=== PATIENT | female | born 1995 | race Caucasian/White ===

== ENCOUNTER 2017-02-24 07:11 | Emergency (ER) | payer BC, OTHER ==
--- NOTE | 2017-02-24 08:07 | EDM.PDOC ---
ED HPI GENERAL MEDICAL PROBLEM - General Chief Complaint: Cardiovascular Problem Stated Complaint: FAST HEART RATE Time Seen by Provider: 02/24/17 07:21 Source of Information: Reports: Patient History Limitations: Reports: No Limitations - History of Present Illness INITIAL COMMENTS - FREE TEXT/NARRATIVE: The patient is a 21-year-old female with multiple concerns. [place] She states that the main reason she came in this morning is because she was up all night last night unable to sleep. She says that she felt like her heart was racing and also says that every time she was about to drift off to sleep she felt like she couldn't catch her breath and then would wake up and feel anxious and the process would start over again. She doesn't currently feel short of breath. She doesn't have any chest pain. She hasn't been ill recently. She does intermittently feel like her heart is racing. She states that she's been very anxious about a "dent" on her head. It is located on top of her scalp. She just noticed it over the past few days. She is worried it could be sinus in thing dangerous. She has no headache. She has no recent trauma. She is not sure when the dent appeared. She hasn't seen a doctor for it previously. She is also concerned because she was told that she has an abnormal Pap and is positive for HPV. She hasn't followed up with gynecology yet but she does have plans to do so. She has not yet established care with a local primary care provider - Related Data Allergies Allergy/AdvReac Type Severity Reaction Status Date / Time Penicillins Allergy Hives Verified 02/24/17 07:25 Home Meds: Home Meds Cranberry Extract [Cranberry] 1,000 mg PO DAILY 02/24/17 [History] Cyanocobalamin (Vitamin B-12) [Vitamin B12] 2,500 mcg PO DAILY 02/24/17 [History ] Ethinyl Estradiol/Drospirenone [Drospirenone-Ee 3-0.03 mg Tab] 1 tab PO DAILY [History] Multivits,Ca,Minerals/Iron/FA [One-A-Day Women's] 1 tab PO DAILY 02/24/17 [ History] hydrOXYzine HCl [Atarax] 25 mg PO BEDTIME PRN #12 tablet 02/24/17 [Rx] Past Medical History HEENT History: Reports: Impaired Vision Other HEENT History: wears contacts/glasses. Gastrointestinal History: Reports: Other (See Below) Other Gastrointestinal History: states "I just get stomach aches." Genitourinary History: Reports: UTI, Recurrent CASING BLOWER History: Reports: Neurological History: Reports: Headaches, Chronic Psychiatric History: Reports: Anxiety Other Psychiatric History: used to be on med, D/C'd. Dermatologic History: Reports: Eczema - Infectious Disease History Infectious Disease History: Reports: Human Papilloma Virus (HPV) - Past Surgical History HEENT Surgical History: Reports: Tonsillectomy Female Surgical History: Reports: Other (See Below) Other Female Surgeries/Procedures: HPV Social & Family History - Tobacco Use Smoking Status *Q: Never Smoker Second Hand Smoke Exposure: No - Caffeine Use Caffeine Use: Reports: Coffee, Energy Drinks, Soda - Alcohol Use Days Per Week of Alcohol Use: 2 Number of Drinks Per Day: 3 Total Drinks Per Week: 6 - Recreational Drug Use Recreational Drug Use: No ED ROS GENERAL - Review of Systems Review Of Systems: See Below Constitutional: Denies: Fever HEENT: Reports: No Symptoms Respiratory: Denies: Cough Cardiovascular: Denies: Chest Pain Endocrine: Reports: No Symptoms GI/Abdominal: Reports: No Symptoms : Reports: No Symptoms Neurological: Denies: Headache Psychiatric: Reports: Anxiety ED EXAM, GENERAL - Physical Exam Exam: See Below Exam Limited By: No Limitations General Appearance: Alert, WD/WN, No Apparent Distress Eye Exam: Bilateral Eye: EOMI, PERRL Ears: Normal External Exam Nose: Normal Inspection Throat/Mouth: Normal Inspection, Normal Oropharynx, Normal Voice Head: Atraumatic, Normocephalic, Other (The patient has a slight concavity of the skull where the frontal bone meets the parietal bone. This is subtle. There is no palpable deformity. No tenderness.) Neck: Normal Inspection, Supple, Non-Tender, Full Range of Motion Respiratory/Chest: No Respiratory Distress, Lungs Clear, Normal Breath Sounds Cardiovascular: Normal Peripheral Pulses, Regular Rate, Rhythm, No Murmur GI/Abdominal: Soft, Non-Tender, No Distention Back Exam: Normal Inspection Extremities: Normal Inspection Neurological: Alert, Oriented, CN II-XII Intact, Normal Cognition, No Motor/ Sensory Deficits Psychiatric: Normal Affect, Normal Mood Skin Exam: Warm, Dry, Intact, Normal Color, No Rash Course - Vital Signs Last Recorded V/S: Last Vital Signs Temp 36.8 C 02/24/17 07:15 Pulse 108 H 02/24/17 07:15 Resp 16 02/24/17 07:15 BP 151/90 H 02/24/17 07:15 Pulse Ox 100 02/24/17 07:15 - Orders/Labs/Meds Orders: Active Orders 24 hr Category Date Time Status EKG 12 Lead [EKG Documentation Completion] [RC] STAT Care 02/24/17 07:15 Active T4 FREE [CHEM] Stat Lab 02/24/17 08:03 Ordered TSH [CHEM] Stat Lab 02/24/17 08:03 Ordered - Re-Assessments/Exams Free Text/Narrative Re-Assessment/Exam: 02/24/17 08:16 Discussed patient's multiple somatic complaints. She would benefit from consultation with a primary doctor to addressed her multiple non-emergency concerns. I do appreciate the slight concavity of her skull bone that she has noticed, I highly suspect that this is been present for years and is likely congenital and nothing to worry about. However I did encourage her to further discuss with the primary doctor who can decide whether further investigation is necessary, she certainly has no evidence of this being an emergency condition today. I also discussed her abnormal Pap and HPV results with her and encouraged her to follow up with the care clinician which she plans to do. Her EKG is unremarkable. Her heart rate was a little bit over 100 when she first arrived, however during our conversation after reassurance she had a heart rate in the 70s and her blood pressure was also one teens over 60s. She is well appearing. She is accompanied by her mother today and appears to have good social support. She states that she was on medication for anxiety when she was a teenager but hasn't been on anything recently. She attributes her current anxiety symptoms to recent move and life stress. She does have a job and social support. I will recommend hydroxyzine as needed for her transient anxiety and insomnia symptoms, encouraged her to follow up with the primary doctor for further management if she continues to have symptoms. She plans to call the clinic today for an appointment. Discussed return precautions. We will send thyroid studies to rule out hyperthyroidism and I will call her if her thyroid studies are abnormal. Departure - Departure Time of Disposition: 08:03 Disposition: Home, Self-Care 01 Clinical Impression: Anxiety Prescriptions: hydrOXYzine HCl [Atarax] 25 mg PO BEDTIME PRN #12 tablet PRN Reason: insomnia or anxiety Instructions: Panic Attacks Forms: ED Department Discharge Additional Instructions: 1. Call [phone] to schedule an appointment with Dr. Zavala or the other primary care provider of your choice 2. I will call you if your thyroid studies are not normal 3. Take hydroxyzine as prescribed for trouble sleeping or anxiety symptoms. Discuss further control of your symptoms as needed with a primary doctor. 4. You've been cleared of an emergency medical condition. Please further discuss your concerns with your primary doctor. Return to the ED if you have difficulty breathing, passing out episodes, severe abdominal pain, or other concerning symptoms. - My Orders Last 24 Hours: My Active Orders 02/24/17 07:15 EKG 12 Lead [EKG Documentation Completion] [RC] STAT 02/24/17 08:03 T4 FREE [CHEM] Stat TSH [CHEM] Stat - Assessment/Plan Last 24 Hours: My Active Orders 02/24/17 07:15 EKG 12 Lead [EKG Documentation Completion] [RC] STAT 02/24/17 08:03 T4 FREE [CHEM] Stat TSH [CHEM] Stat
[2017-02-24 08:47] VITALS: BP 121/71
== END 2017-02-24 08:35 | disposition home or self-care (01) ==
LOC: JD.ED 07:11
DX: F41.9 Anxiety disorder, unspecified (principal); Z87.440 Personal history of urinary (tract) infections; Z98.890 Other specified postprocedural states; Z79.899 Other long term (current) drug therapy; Z88.0 Allergy status to penicillin
CPT/HCPCS: 36415; 84439; 84443; 93005; 99283; 99285-25